=== PATIENT | male | born 1945 | race Caucasian/White ===

== ENCOUNTER 2021-04-24 09:23 | Day surgery (SDC) | payer MEDICARE, MEDICAID ==
[2021-04-24] VITALS (22 sets, daily range): BP systolic 103–139; BP diastolic 43–89
[~2021-04-24] VITALS: Ht 175.3 cm; Wt 95.7 kg
[2021-04-24] MEDS ORDERED: normal saline 1000ml 1,000 ML IV SCH (10:00)
[2021-04-24] MEDS ORDERED: SIMV40TA PO (10:09)
[2021-04-24] MEDS ORDERED: testosterone (10:09)
[2021-04-24] MEDS ORDERED: NALT50TA PO (10:09)
[2021-04-24] MEDS ORDERED: HYDR-4069 PO (10:09)
[2021-04-24] MEDS ORDERED: MIRT45TA79 PO (10:09)
[2021-04-24] MEDS ORDERED: FLUT1BLS4 (10:09)
[2021-04-24] MEDS ORDERED: LOP12.5T PO (10:09)
[2021-04-24] MEDS ORDERED: ALLO100T PO (10:09)
[2021-04-24] MEDS ORDERED: midazolam 1 mg/ML 2ml injection ONE (10:25)
[2021-04-24] MEDS ORDERED: fentaNYL/PF 50MCG/1 ML 2ML syringe ONE (10:25)
[2021-04-24] MEDS ORDERED: sodium chloride 0.45% 1,000 ML IV SCH (10:50)
== END 2021-04-24 15:05 | disposition home or self-care (01) ==
LOC: SSTAY O 09:23
PROVIDERS: ATTEND Radiology Vascular & Interventional Radiology
DX: R91.1 Solitary pulmonary nodule (principal); J98.4 Other disorders of lung; I10 Essential (primary) hypertension; E78.5 Hyperlipidemia, unspecified; Z87.891 Personal history of nicotine dependence; Z88.2 Allergy status to sulfonamides; Z88.8 Allergy status to other drugs, medicaments and biological substances; Z79.899 Other long term (current) drug therapy
CPT/HCPCS: 32408; 71045; J2250; J3010; J7030; 77012; 88305; 88341; 88342

== ENCOUNTER 2023-07-25 07:28 | Day surgery (SDC) | payer MEDICARE, MEDICAID ==
[2023-07-18 11:06] LABS: BASOPHILS % (AUTO) 0.4 % (0-1); EOSINOPHILS # (AUTO) 0.3 X10'3 (0-0.9); EOSINOPHILS % (AUTO) 3.4 % (0-6); LYMPHOCYTES # (AUTO) 1.7 X10'3 (1.1-4.8); LYMPHOCYTES % (AUTO) 21.4 % (21-51); MEAN CORPUSCULAR HGB CONC 32.7 g/dL (33.0-36.5); MEAN CORPUSCULAR VOLUME 91.8 FL (78-98); MEAN PLATELET VOLUME 9.1 FL (7.4-10.4); MONOCYTES # (AUTO) 0.8 X10'3 (0-0.9); MONOCYTES % (AUTO) 10.5 % (2-12); NEUTROPHILS # (AUTO) 5.1 X10'3 (1.8-7.7); NEUTROPHILS % (AUTO) 64.3 % (42-75); PRE OP HEMATOCRIT 44.3 % (42.0-52.0); PRE OP HEMOGLOBIN 14.5 g/dL (14.0-17.9); PRE OP PLATELET COUNT 193 X10'3 (140-440); PRE OP WHITE BLOOD COUNT 7.9 10'3 (4.8-10.8); RED BLOOD COUNT 4.82 X10'6 (4.70-6.10); RED CELL DISTRIBUTION WIDTH 14.6 % (11.5-14.5)
[2023-07-18 11:54] LABS: ALBUMIN 3.3 G/DL (3.4-5.0); ALBUMIN/GLOBULIN RATIO 0.8 (1.1-1.5); ALKALINE PHOSPHATASE 51 IU/L (46-116); BLOOD UREA NITROGEN 23 MG/DL (7-18); BUN/CREATININE RATIO 17.3 (10.0-20.0); CALCIUM 8.2 MG/DL (8.5-10.1); CHLORIDE 104 MMOL/L (99-107); CREATININE 1.33 MG/DL (0.60-1.10); PRE OP ALT 22 U/L (30-65); PRE OP ANION GAP 8 (8-16); PRE OP AST 18 U/L (10-37); PRE OP BILIRUB, TOTAL 0.4 MG/DL (0.0-1.0); PRE OP POTASSIUM 4.6 MMOL/L (3.4-5.1); PRE OP SODIUM 138 MMOL/L (135-145); TOTAL PROTEIN 7.3 G/DL (6.4-8.2); eGFR 52 ML/MIN
[2023-07-18 12:03] LABS: PRE OP GLUCOSE 200 MG/DL (70-104)
[2023-07-25] VITALS (7 sets, daily range): BP systolic 120–162; BP diastolic 73–91; PULSE 67–89; RESP 14–20; TEMP 98.2; O2SAT 94–98
[~2023-07-25] VITALS: Ht 175.3 cm; Wt 93.6 kg
[~2023-07-25 07:28] MED LIST: ALBU18HF2; ASPI-611 PO; DOCUMENT DATE & TIME OF BETA-BLOCKER PO ONE; EZET10TA48 PO; FLO0.4C; FLUT1BLS4 INH; GABA-530 PO; HYDR-4069 PO; KRIL1CAP40 PO; LOP12.5T PO; METF-1203 PO; MULT-1172 PO; NALT50TA PO; RIVA2.5T PO; ROSU40TA22 PO; TEST5GEL18 TOP; [UNRECOGNIZED DRUG - CODE]; famotidine 20mg tablet PO ONE; ringers solution, lacted 1,000 ML IV SCH
[2023-07-25] MEDS ORDERED: sevoflurane 250ml liquid IH ONE (09:38)
[2023-07-25] MEDS ORDERED: fentaNYL/PF 50MCG/1 ML 2ML syringe ONE (09:42)
[2023-07-25] MEDS ORDERED: midazolam 1 mg/ML 2ml injection ONE (09:46)
[2023-07-25] MEDS ORDERED: dexamethasone sod phosphate 4mg/ml inj. ONE (09:55)
[2023-07-25] MEDS ORDERED: LIDOcaine 2% (20mg/ml) 5ml vial ONE (09:55)
[2023-07-25] MEDS ORDERED: rocuronium 10mg/ml inj IV ONE (09:55)
[2023-07-25] MEDS ORDERED: propofol inj 20 ML IV ONE (09:55)
[2023-07-25] MEDS ORDERED: ondansetron/PF 4mg/2ml inj ONE (09:55)
[2023-07-25] MEDS ORDERED: ePHEDrine 50MG/ML INJ. ONE (09:56)
[2023-07-25] MEDS ORDERED: 0.9 % SODIUM CHLORIDE 10 ML VIAL ONE (09:56)
[2023-07-25] MEDS ORDERED: ringers solution, lacted 1,000 ML IV SCH (11:00)
[2023-07-25] MEDS ORDERED: morphine 2 MG/ML inj. syringe IV PRN (11:00)
[2023-07-25] MEDS ORDERED: acetaminophen 1,000mg/100ml IV 100 ML IV ONE (11:00)
[2023-07-25] MEDS ORDERED: glycopyrrolate 0.2mg/ml inj ONE (11:00)
[2023-07-25] MEDS ORDERED: morphine 4 MG/ML inj SYRINge IV PRN (11:00)
[2023-07-25] MEDS ORDERED: hydrALAZINE 20mg/ml inj. IV PRN (11:00)
[2023-07-25] MEDS ORDERED: ondansetron/PF 4mg/2ml inj IV PRN (11:00)
[2023-07-25] MEDS ORDERED: proCHLORperazine 10 MG/2 ml inj IV PRN (11:00)
[2023-07-25] MEDS ORDERED: labetalol 20mg/4ml (5mg/ml) syringe IV PRN (11:00)
[2023-07-25] MEDS ORDERED: meperidine/PF 25mg/ml syringe IV PRN ×3 (11:00)
[2023-07-25] MEDS ORDERED: neostigmine methylsulfate 1 MG/ML 10ml vial ONE (11:01)
== END 2023-07-25 12:19 | disposition home or self-care (01) ==
LOC: PAS 07:28
PROVIDERS: ATTEND Internal Medicine Critical Care Medicine
DX: R91.8 Other nonspecific abnormal finding of lung field (principal); J43.9 Emphysema, unspecified; I10 Essential (primary) hypertension; E78.00 Pure hypercholesterolemia, unspecified; Z88.2 Allergy status to sulfonamides; Z88.8 Allergy status to other drugs, medicaments and biological substances; Z79.899 Other long term (current) drug therapy; F12.90 Cannabis use, unspecified, uncomplicated; Z72.89 Other problems related to lifestyle; Z87.891 Personal history of nicotine dependence; Z95.5 Presence of coronary angioplasty implant and graft; Z86.19 Personal history of other infectious and parasitic diseases; Z80.0 Family history of malignant neoplasm of digestive organs
CPT/HCPCS: 31623; 31624; 31628; 31629; 31653; 36415; 71045; 71250; 80053; 82948; 85025; 87070; 93005; 94760; J1100; J2250; J2405; J2704; J2710; J3010; J3490; J7120; Z7506; Z7508; Z7512; 31622; 31625; 31626; 31627; 31654; 88172; 88173; 88305; A4615; A4618